=== PATIENT | male | born 1980 | race Asian ===

== ENCOUNTER 2016-10-12 07:48 | Outpatient (CLI) | payer OTHER ==
[2016-10-12 08:24] LABS: ANION GAP 9.8 (8-16); CALCIUM 8.8 mg/dL (8.5-10.1); CARBON DIOXIDE 28.7 mmol/L (21-32); CREATININE 1.2 mg/dL (0.6-1.3); POTASSIUM 4.5 mmol/L (3.5-5.1); TOTAL BILIRUBIN 0.5 mg/dL (0.0-1.0); TOTAL PROTEIN, SERUM 7.1 g/dL (6.4-8.2)
== END 2016-10-12 20:54 | disposition home or self-care (01) ==
LOC: MLB 07:48
PROVIDERS: ATTEND Family Medicine
DX: E78.5 Hyperlipidemia, unspecified (principal)
CPT/HCPCS: 36415; 80053